=== PATIENT | female | born 1990 | race Caucasian/White ===

== ENCOUNTER 2018-05-16 13:15 | Observation (INO) | payer OTHER ==
[~2018-05-16 13:15] MED LIST: NORPTMEDS CO
[2018-05-16] MEDS ORDERED: PREN-96 PO (15:01)
== END 2018-05-16 15:15 | disposition home or self-care (01) | DRG 566 ==
LOC: LDRP 13:15
PROVIDERS: ADMIT Obstetrics & Gynecology; ATTEND Obstetrics & Gynecology
DX: O36.8130 Decreased fetal movements, third trimester, not applicable or unspecified (principal); O26.893 Other specified pregnancy related conditions, third trimester; N89.8 Other specified noninflammatory disorders of vagina; Z3A.38 38 weeks gestation of pregnancy
CPT/HCPCS: 59025; 76805; 76818; 81002; G0378

== ENCOUNTER 2021-10-21 16:56 | Emergency (ER) | payer MEDICAID ==
[~2021-10-21] VITALS: Ht 170.2 cm; Wt 70.8 kg
[~2021-10-21 16:56] MED LIST changes: -NORPTMEDS CO; +PREN-96 PO
[2021-10-21 17:03] VITALS: BP 125/81
[2021-10-21 20:20] LABS: Urine Bacteria FEW /hpf (None Seen); Urine Blood TRACE /uL (Negative); Urine Mucus FEW (None Seen); Urine WBC 102 /hpf (0 - 5); Urine WBC Clumps PRESENT /hpf (None Seen)
[2021-10-21] MEDS ORDERED: CEPH-509 PO (20:32)
== END 2021-10-21 20:45 | disposition home or self-care (01) ==
LOC: ER 16:56
DX: O23.42 Unspecified infection of urinary tract in pregnancy, second trimester (principal); N39.0 Urinary tract infection, site not specified; Z3A.19 19 weeks gestation of pregnancy
CPT/HCPCS: 36415; 76805; 81001; 82010; 84702